=== PATIENT | female | born 1955 | race Caucasian/White ===

== ENCOUNTER 2021-01-26 16:28 | Emergency (ER) | payer MEDICARE ==
[2021-01-26] MEDS ORDERED: cefTRIAXone\\ROCEPHIN 2 GM VIAL ONE (17:31)
[2021-01-26] MEDS ORDERED: Sulfameth/Trimethoprim DS 800-160mg TAB ONE (17:31)
== END 2021-01-26 17:55 | disposition home or self-care (01) ==
LOC: MADERS 16:28
DX: L03.111 Cellulitis of right axilla (principal); I44.7 Left bundle-branch block, unspecified; F17.210 Nicotine dependence, cigarettes, uncomplicated
CPT/HCPCS: J0696

== ENCOUNTER 2021-01-27 10:29 | Emergency (ER) | payer MEDICARE ==
[2021-01-27] MEDS ORDERED: Lidocaine 1% w/Epinephrine 1:100K 20 ML VIAL ONE (11:04)
[2021-01-27] MEDS ORDERED: Ketorolac Tromethamine 30 MG/ML VIAL ONE (11:52)
[2021-01-27] MEDS ORDERED: Cefepime 2 GM VIAL ONE (11:52)
[2021-01-27] MEDS ORDERED: Sodium Chloride 0.9% 100 ML ONE (11:52)
[2021-01-27] MEDS ORDERED: Vancomycin HCl 500 MG VIAL ONE (12:02)
[2021-01-27] MEDS ORDERED: Sodium Chloride 0.9% 0 ML ONE (12:02)
[2021-01-27] MEDS ORDERED: Sodium Chloride 0.9% 250 ML 250 ML ONE (12:04)
[2021-01-27] MEDS ORDERED: Sodium Chloride 0.9% 1,000 ML ONE ×2 (12:11→14:39)
[2021-01-27 12:20] LABS: ALT (SGPT) 15 U/L (8-55); AST (SGOT) 11 U/L (5-34); Albumin 3.7 g/dL (3.4-4.8); Alkaline Phosphatase 86 U/L (40-110); Anion Gap 16 mmol/L (10-20); BUN (Urea Nitrogen) 26 mg/dL (9.8-20.1); Calc. Creatinine Clearance 0 mL/min (70-130); Calcium 9.5 mg/dL (7.8-10.44); Carbon Dioxide 26 mmol/L (23-31); Chloride 98 mmol/L (98-107); Globulin 2.9 g/dL (2.4-3.5); Glucose 136 mg/dL (80-115); Potassium 3.7 mmol/L (3.5-5.1); Protein, Total 6.6 g/dL (5.8-8.1); Sodium 136 mmol/L (136-145)
[2021-01-27 12:25] LABS: Hemoglobin 13.4 g/dL (12.0-16.0); Mean Corpuscular HGB CONC 33.2 g/dL (32.0-36.0); Mean Corpuscular Hemoglobin 31.8 pg (27.0-31.0); Mean Corpuscular Volume 95.8 fL (78.0-98.0); RBC Distribution Width 11.4 % (11.5-14.5); Red Blood Cell (RBC) Count 4.23 mill/uL (4.20-5.40); White Blood Cell (WBC) Count 18.5 thou/uL (4.8-10.8)
[2021-01-27 12:26] LABS: Manual Diff?? YES; Mean Platelet Volume 9.2 fL (7.4-10.4); Platelet Count 145 thou/uL (130-400)
[2021-01-27 12:30] LABS: Band 9 % (5-11); Eosinophils 1 % (0-10); Lymphocytes 5 % (21-51); MDiff Complete? YES; Monocytes 4 % (0-10); Neutrophil 80 % (42-75); Platelet Morphology Comment Appears Adequate; RBC Morphology N; Reactive Lymphocytes 1 % (0-10)
[2021-01-27 13:53] LABS: SARS-CoV-2 NAA Rapid Test Not Detected (NotDetected)
== END 2021-01-27 15:35 | disposition short-term general hospital (02) ==
LOC: MADERS 10:29
DX: A41.9 Sepsis, unspecified organism (principal); L03.111 Cellulitis of right axilla; Z20.822 Contact with and (suspected) exposure to COVID-19; I44.7 Left bundle-branch block, unspecified; I25.10 Atherosclerotic heart disease of native coronary artery without angina pectoris; Z87.891 Personal history of nicotine dependence; Z79.899 Other long term (current) drug therapy; Z79.82 Long term (current) use of aspirin
CPT/HCPCS: 80053; 83605; 85025; 87040; 96365; 96366; 96375; J0692; J1885; J3370; J3490; J7030; J7050; U0002